=== PATIENT | female | born 1980 | race Caucasian/White ===

== ENCOUNTER 2017-07-18 12:48 | Emergency (ER) | payer OTHER ==
[~2017-07-18] VITALS: Ht 160 cm; Wt 72.6 kg
--- NOTE | ~2017-07-18 | EKG ---
[place] [address] 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1980 Requested By: Alfredo Harvey Order Number: [id number] MD: Marcio Huynh Measurements Intervals [place] Rate: 57 P: -34 [place]: 140 QRS: -26 QRSD: 90 T: -24 QT: 434 QTc: 423 Interpretive Statements Sinus rhythm Abnormal R-wave progression, late transition LVH by voltage Nonspecific T abnormalities, diffuse leads No previous ECG available for comparison Electronically Signed On 07-19-2017 7:14:57 CDT by Marcio Huynh [email or web address] <ELECTRONICALLY SIGNED> By: Marcio Huynh MD 07/19/17 0714 1440 1440 Marcio Huynh MD /BEN
[2017-07-18 14:31] LABS: HEMATOCRIT 46.4 % (37.0-47.0); HEMOGLOBIN 15.7 gm/dL (12.0-15.0); MCH 28.6 pg (26.0-34.0); MCHC 33.9 g/dL (28.0-37.0); MCV 84.4 fL (80.0-100.0); RBC 5.5 mil/uL (4.20-5.00); RDW 12.6 % (10.5-14.5); WBC 7.3 thou/uL (4.0-11.0)
[2017-07-18 14:36] LABS: ANION GAP 10 mmol/L (7-16); BUN 10 mg/dL (7-18); CALCIUM 9.5 mg/dL (8.5-10.1); CHLORIDE 102 mmol/L (98-107); CO2 26 mmol/L (21-32); CREATININE 0.6 mg/dL (0.6-1.0); GLUCOSE 94 mg/dL (74-106); POTASSIUM 3.8 mmol/L (3.5-5.1); SODIUM 138 mmol/L (136-145)
[2017-07-18 14:45] LABS: ALBUMIN 4.3 g/dL (3.4-5.0); ALKALINE PHOSPHATASE 102 U/L (46-116); SGOT 32 U/L (15-37); SGPT 57 U/L (30-65); TOTAL BILIRUBIN 0.4 mg/dL (<0.1-1.0); TOTAL PROTEIN 8.3 g/dL (6.4-8.2); TROPONIN-I < 0.04 ng/mL (<0.06)
[2017-07-18 16:15] VITALS: BP 117/80
[2017-07-18] MEDS ORDERED: IBUPROFEN 600600 M1 PO (16:47)
[2017-07-18] MEDS ORDERED: FLEXERIL PO (16:47)
== END 2017-07-18 17:09 | disposition home or self-care (01) ==
LOC: ER 12:48
PROVIDERS: Emergency Medicine
DX: M25.512 Pain in left shoulder (principal)